=== PATIENT | male | born 1940 | race Caucasian/White ===

== ENCOUNTER 2017-03-18 11:32 | Day surgery (SDC) | payer OTHER ==
[2017-03-18] MEDS ORDERED: VERSED ONE (11:52)
[2017-03-18] MEDS ORDERED: DIPRIVAN 20 ML VIAL IVP ONE (11:52)
[2017-03-18] MEDS ORDERED: SUBLIMAZE ONE (11:52)
[2017-03-18 12:58] VITALS: BP 122/70; TEMP 97.8
--- NOTE | 2017-03-19 07:19 | OP ---
PROCEDURE: EGD (ESOPHAGOGASTRODUODENOSCOPY) WITH DILATION. ENDOSCOPIST: Enzo CUELLO M.D. INDICATION: DYSPHAGIA. INSTRUMENT: [id number]. MEDICATION: PER ANESTHESIA. PROCEDURE: The patient was positioned for endoscopy. The oropharynx was sprayed with Cetacaine spray and the endoscope was advanced through the bite block into the esophagus and from there advanced to the duodenum. The duodenum is grossly normal. The pylorus was patent. The antrum is normal. Retroflex exam revealed a hiatal hernia. The Z-line was regular. There was no evidence for obstruction or mass. A 46 [place] was passed without difficulty. PLAN: 1. Repeat dilatation as needed. CC: DR. SHERICE ADAMES
--- NOTE | 2017-03-19 07:23 | OP ---
PROCEDURE: COLONOSCOPY TO THE CECUM WITH SNARE POLYPECTOMY. ENDOSCOPIST: Enzo CUELLO M.D. INDICATION: HISTORY OF POLYPS, LAST COLONOSCOPY IN 2008. INSTRUMENT: [id number]. MEDICATION: PER ANESTHESIA. PROCEDURE: The patient was positioned for colonoscopy. The digital rectal exam was negative. The colonoscope was inserted through the anus and advanced under direct vision to the cecum. The cecum was identified using ileocecal valve and the appendiceal orifice as landmarks. The scope was fully withdrawn through a very tortuous colon. He had a very significantly looped and tortuous colon. He also had severe melanosis throughout. Small nodular areas in the cecum were removed using snare polypectomy, potentially small adenomas. A small polyp was removed in the transverse colon using snare cautery. No other large lesions. Again, the quality of the exam was compromised by the significance of the melanosis. Retroflex exam was negative. PLAN: 1. Review his pathology. 2. Repeat his exam in 3 to 5 years pending the review of pathology. CC: DR. SHERICE ADAMES
== END 2017-03-18 13:10 | disposition home or self-care (01) ==
LOC: SURG 11:32
PROVIDERS: ATTEND Internal Medicine Gastroenterology
DX: Z09 Encounter for follow-up examination after completed treatment for conditions other than malignant neoplasm (principal); Z86.010 Personal history of colon polyps; D12.0 Benign neoplasm of cecum; D12.3 Benign neoplasm of transverse colon; K56.2 Volvulus; K63.89 Other specified diseases of intestine; R13.10 Dysphagia, unspecified; K44.9 Diaphragmatic hernia without obstruction or gangrene